=== PATIENT | male | born 1990 | race Caucasian/White ===

== ENCOUNTER 2024-01-03 08:46 | Emergency (ER) | payer SELFPAY ==
[~2024-01-03] VITALS: Ht 170.2 cm; Wt 79.0 kg
[2024-01-03 08:48] VITALS: BP 157/87; PULSE 120; RESP 18; TEMP 97.4; O2SAT 99
== END 2024-01-03 14:30 | disposition left against medical advice (07) ==
LOC: ER 08:59
DX: R41.82 Altered mental status, unspecified (principal); Z53.21 Procedure and treatment not carried out due to patient leaving prior to being seen by health care provider